=== PATIENT | female | born 1940 | race Caucasian/White ===

== ENCOUNTER → 2016-08-31 17:14 | Outpatient (CLI) | payer MEDICARE, BC ==
[2013-05-01 10:27] VITALS: BMI 33.9
[~2016-08-31 17:14] MED LIST: ALEVE220 MG PO; BENADRYL INJ50 MG/ML IV; BENADRYL25 M1 PO; COUMADIN5 MG PO; DILAUDID2 MG PO; DULCOLAX10 MG/SUPP RC; FISH OIL 1,0001 CA1; FISH OIL 1,0001 CA1 PO; FISH OIL 1,2001 CA1 PO; LEVAQUIN250 MG PO; LOVENOX30 MG/0.3 SQ; MIRALAX17 GM PO; NARCAN INJ0.4 MG/ML IV; NORCO 10/325 TA1 TA1 PO; OXYCONTIN10 MG PO; POTASSIUM99 M1 PO; PRENATAL COMPLE1 TAB PO; PRENATE ESSENT1 EACH PO; PRILOSEC20 MG PO; PROTONIX40 MG PO; RESTORIL15 MG PO; SALINE FLUSH10 ML IJ; SENOKOT-S TABLE1 TAB PO; TUMS500 MG PO; ZOFRAN4 MG PO
== END | disposition home or self-care (01) ==
LOC: D.MAMMO 08-02 08:15
DX: Z12.31 Encounter for screening mammogram for malignant neoplasm of breast (principal)

== ENCOUNTER → 2017-03-17 13:08 | Outpatient (CLI) | payer MEDICARE, BC ==
[2013-05-01 10:27] VITALS: BMI 33.9
== END | disposition home or self-care (01) ==
LOC: D.MRI 13:08
DX: M54.2 Cervicalgia (principal); M25.511 Pain in right shoulder

== ENCOUNTER → 2017-03-30 09:04 | Outpatient (CLI) | payer MEDICARE, BC ==
[2013-05-01 10:27] VITALS: BMI 33.9
== END | disposition home or self-care (01) ==
LOC: D.CT 03-24 11:00
DX: M25.511 Pain in right shoulder (principal)

== ENCOUNTER → 2018-11-09 09:36 | Outpatient (CLI) | payer MEDICARE, BC ==
[~2018-11-09 09:36] MED LIST changes: +PRAVACHOL40 MG PO; +VITAMIN D31000 UNIT PO; +ZYLOPRIM100 MG PO
== END | disposition home or self-care (01) ==
LOC: D.US 09:36
DX: C64.9 Malignant neoplasm of unspecified kidney, except renal pelvis (principal)

== ENCOUNTER 2019-03-07 11:39 | Inpatient (IN) | payer MEDICARE, BC ==
[~2019-03-07] VITALS: Ht 167.6 cm; Wt 93.6 kg
[~2019-03-07 11:39] MED LIST changes: -PRAVACHOL40 MG PO; -VITAMIN D31000 UNIT PO; -ZYLOPRIM100 MG PO
[2019-03-07] MEDS ORDERED: VITAMIN D31000 UNIT PO (13:58)
[2019-03-07] MEDS ORDERED: ZYLOPRIM100 MG PO (13:59)
[2019-03-07] MEDS ORDERED: PRAVACHOL40 MG PO (14:00)
[2019-03-07 14:56] VITALS: BP 153/63; BMI 33.3
[2019-03-07 15:36] VITALS: BP 153/62
[2019-03-07 15:38] VITALS: Ht 167.6 cm; Wt 93.6 kg
[2019-03-07 15:42] LABS: CKMB 2.3 U/L (0.0-3.6); CREATINE KINASE 240 UL (21-215); UREA NITROGEN 20 mg/dL (7-18)
[2019-03-07 15:44] LABS: TROPONIN-I < 0.017 ng/mL (0.000-0.060)
--- NOTE | 2019-03-07 16:26 | NUR ---
IV STARTED TO RIGHT FA WITH 20 GAUGE CATH 2 1 STICK AND FLUSHED WITH NS. LINE IS PATENT.
[2019-03-07 18:59] LABS: APPEARANCE CLEAR (CLEAR); BILIRUBIN NEGATIVE (NEGATIVE); COLOR YELLOW (YELLOW); GLUCOSE NEGATIVE (NEGATIVE); KETONE NEGATIVE (NEGATIVE); NITRITE NEGATIVE (NEGATIVE); PROTEIN NEGATIVE (NEGATIVE); SPECIFIC GRAVITY 1.015 (1.005-1.020); UROBILINOGEN NORMAL (NORMAL)
[2019-03-07 19:02] LABS: BACTERIA FEW /hpf (NONE SEEN); EPITHELIAL CELLS 0-5 /hpf (0-5); RED CELLS - URINE 0-5 /hpf (0-5); WHITE CELLS - URINE OCC /hpf (0-5)
--- NOTE | 2019-03-07 19:59 | NUR ---
RECEIVED BEDSIDE REPORT. PATIENT IS ALERT AND ORIENTED. RESTING COMFORTABLY IN BED. RESPIRATIONS ARE EVEN AND UNLABORED. PATIENT RECEIVING SCHEDULED BREATHING TREATMENT. CALL LIGHT WITHIN REACH. WILL CPOC.
[2019-03-07 20:00] VITALS: BP 132/49
[2019-03-07 20:55] LABS: CKMB 1.8 U/L (0.0-3.6); CREATINE KINASE 219 UL (21-215); TROPONIN-I < 0.017 ng/mL (0.000-0.060)
[2019-03-08] VITALS: BP 134/56
[2019-03-08 03:08] LABS: BASOPHILS 0.9 % (0-2); IMMATURE GRANULOCYTES 0.1 % (0-5); LYMPHOCYTES 42.8 % (15-50); MCH 31.2 pg (26.0-34.0); MCHC 34.3 g/dL (31.0-37.0); MCV 90.9 fL (80.0-100.0); MEAN PLATELET VOLUME 10.5 fL (7.4-10.4); MONOCYTES 14.8 % (2-11); NEUTROPHILS 39.4 % (40-80); RBC 3.85 10x6/uL (4.00-5.40); WBC 8.1 10x3/uL (4.8-10.8)
[2019-03-08 03:12] LABS: PLATELET COUNT 128 10x3/uL (130-400)
[2019-03-08 03:35] LABS: ALBUMIN 3.5 g/dL (3.4-5.0); ALKALINE PHOSPHATASE 59 U/L (46-116); ALT (SGPT) 25 U/L (10-68); BILIRUBIN - TOTAL 0.38 mg/dL (0.2-1.3); CALC OSMOLALITY 282 mosm/kg (275-300); CALCIUM 9.1 mg/dL (8.5-10.1); CARBON DIOXIDE 26.9 mmol/L (21.0-32.0); CHLORIDE - SERUM 105 mmol/L (98-107); CKMB 1.8 U/L (0.0-3.6); CREATINE KINASE 188 UL (21-215); GLUCOSE 117 mg/dL (74-106); MAGNESIUM - SERUM 1.7 mg/dL (1.8-2.4); POTASSIUM - SERUM 3.6 mmol/L (3.5-5.1); PROTEIN - SERUM 6.9 g/dL (6.4-8.2); SODIUM 141 mmol/L (136-145); UREA NITROGEN 16 mg/dL (7-18); eGFR NON AFRICAN AMERICAN 57 mL/min (90-120)
[2019-03-08 03:41] LABS: TROPONIN-I < 0.017 ng/mL (0.000-0.060)
[2019-03-08 04:00] VITALS: BP 130/52
--- NOTE | 2019-03-08 07:20 | NUR ---
REPORT RECEIVED. WILL CONTINUE WITH POC. PT CURRENTLY LYING SEMI FOWLERS. CALL LIGHT W/I REACH. PT IS RESTING AT THE MOMENT. RR EVEN AND UNLABORED ON RA. R.FOR PIV IS SALINE LOCKED. PT IS NPO UNTIL SEEN BY CARDIOLOGY. PT DENIES ANY NEEDS AT THIS TIME. NO S/S OF DISTRESS NOTED. WILL CTM.
--- NOTE | 2019-03-08 07:52 | NUR ---
PT HAS MEDICATION AT BEDSIDE AND REFUSES TO TAKE ORDERED MEDICATIONS WHILE IN THE HOSPITAL. SHE STATED "IM GOING TO TAKE WHAT I NORMALLY DO AT THE SAME TIME I NORMALLY TAKE THEM." INSTRUCTED PATIENT WE WERE NOT ALLOWED TO KEEP HOME MEDICATIONS IN THE ROOM AND SHE REFUSED TO LET ME REMOVE THEM. WILL NOTIFY CHARGE NURSE. WILL CTM.
--- NOTE | 2019-03-08 09:25 | NUR ---
I have reviewed this patient and I concur with the Shift Assessment completed by the Licensed Practical Nurse today this shift.
[2019-03-08 11:00] VITALS: BP 142/53
--- NOTE | 2019-03-08 12:31 | NUR ---
PT CURRENTLY LYING SEMI FOWLERS. CALL LIGHT W/I REACH. AAO AND UP AD MAX. RR EVEN AND UNLABORED ON RA. LUNCH TRAY ORDERED. WILL CTM.
[2019-03-08 16:23] VITALS: BP 155/61
[2019-03-08 20:00] VITALS: BP 133/58
--- NOTE | 2019-03-08 20:00 | NUR ---
INITIAL ROUNDS AND ASSESSMENT COMPLETED. PT UP AND ABOUT IN HER ROOM. NONLABORED RESPIRATIONS ON ROOM AIR. SR PER TELEMETRY. SALINE LOCK TO RFA. CPOC.
--- NOTE | 2019-03-08 23:00 | NUR ---
PT HAS SHOWERED AND DRESSED. WALKING AROUND UNIT. CPOC.
[2019-03-09] VITALS: BP 143/66
[2019-03-09 04:00] VITALS: BP 152/59
[2019-03-09 06:21] LABS: EOSINOPHILS 2.3 % (0-7); HEMATOCRIT 36.7 % (36.0-48.0); HEMOGLOBIN 12.5 g/dL (12-16); IMMATURE GRANULOCYTES 0.1 % (0-5); LYMPHOCYTES 40.4 % (15-50); MCH 31.3 pg (26.0-34.0); MCHC 34.1 g/dL (31.0-37.0); MEAN PLATELET VOLUME 10.7 fL (7.4-10.4); MONOCYTES 9.9 % (2-11); NEUTROPHILS 46.3 % (40-80); PLATELET COUNT 153 10x3/uL (130-400); RBC 3.99 10x6/uL (4.00-5.40); RDW 14.2 % (11.5-14.5); WBC 7.3 10x3/uL (4.8-10.8)
[2019-03-09 06:53] LABS: ALBUMIN 3.8 g/dL (3.4-5.0); ANION GAP 12.8 mmol/L (8-16); BILIRUBIN - TOTAL 0.42 mg/dL (0.2-1.3); CARBON DIOXIDE 27.8 mmol/L (21.0-32.0); CREATININE - SERUM 0.9 mg/dL (0.6-1.3); MAGNESIUM - SERUM 1.8 mg/dL (1.8-2.4); POTASSIUM - SERUM 3.6 mmol/L (3.5-5.1); PROTEIN - SERUM 7.7 g/dL (6.4-8.2)
--- NOTE | 2019-03-09 07:31 | NUR ---
ASSESSMENT COMPLETED. ALERT AND ORIENTED. TELEMERTY SHOWS SR. SL TO RIGHT FOREARM. UP AB MAX. TAKES OWN MEDS. DENIES ANY NEEDS. SR UP WITH CALL LIGHT IN REACH
[2019-03-09 13:08] VITALS: BP 165/72
--- NOTE | 2019-03-09 13:59 | NUR ---
PT DISCHARGED. IV DCD WITH TIPP INTACT. TO PRIVATE CAR PER WHEELCHAIR
--- NOTE | 2019-03-11 09:02 | MORECARE ---
CASE MANAGEMENT DISCHARGE SUMMARY PATIENT: BRANDIE COLÓN UNIT: [id number] ADM DATE: 03/07/19 AGE: 78 : 40 SEX: F ROOM/BED: D.7042 AUTHOR: DALI CHAVEZ PHYSICIAN: REFERRING PHYSICIAN: ELANA RODRÍGUEZ DO DATE OF SERVICE: 03/11/19 Discharge Plan Patient Name: BRANDIE COLÓN [facility] 1940 Planned Disposition: Home Anticipated Discharge Date: 03/09/19 Discharge Date: 03/09/2019 Expected LOS: 2 Initial Reviewer: [email or web address] Initial Review Date: 03/11/2019 Generated: 03/11/19 10:02 am Patient Name: BRANDIE COLÓN Page [id number] at 0902 All edits/amendments must be made on the electronic document DICTATION DATE: 03/11/19901 COAT ROOM ATTENDANT: VINCE 03/11/19901 RPT#: [id number] DC DATE:03/09/19 STATUS: DIS IN [facility] [address] [facility] [place] [address] END OF REPORT
--- NOTE | 2019-03-12 11:09 | EC ---
PATIENT:BRANDIE COLÓN DATE OF SERVICE: 03/07/19 SEX: F MEDICAL RECORD: [id number] DATE OF : 40 LOCATION:D. D.212 AGE OF PATIENT: 78 ADMISSION DATE: 03/07/19 REFERRING PHYSICIAN: INTERPRETING PHYSICIAN: KVNG FERNANDEZ MD ECHOCARDIOGRAM REPORT ECHO CHARGES 4 ECHO COMPLETE Date: 03/08/19 CLINICAL DIAGNOSIS: CHEST PAIN ECHOCARDIOGRAPHIC MEASUREMENTS (adult normal given) AC root (d.<3.7cm) 3.1 cm LV Septum d (<1.2 cm> 1.5 cm Valve Excursion 1.5 cm LV Septum (systole) 1.6 cm Left Atria (s.<4.0cm> 3.7 cm LVPW d(<1.2cm) 1.5 cm RV (d.<2.3cm) 3.6 cm LVPW (sytole) 1.6 cm LV diastole(<5.6CM) 3.5 cm MV E-F(>70mm/sec) cm LV systole 2.4 cm LVOT Diameter 1.9 cm MV exc.(>10mm) 1.6 cm Est.ejection fraction (50-75%) % DOPPLER: LVIT cm/sec A 100.0cm/sec E 70.0 cm/sec LA cm/sec RVSP 32 mmHg LVOT 123 cm/sec AOP1/2T m/s Asc. Ao 170 cm/sec RVOT 133 cm/sec RA cm/sec PA 140 cm/sec AV Gradient Peak 11.53mmHg AV Mean 6.26 mmHg AV Area 1.9 cm MV Gradient Peak 6.45 mmHg MV Mean 2.42 mmHg MV Area cm COMMENTS: Forestry Foreman: Nelly LEIJA Divorce Attorney: 1 Dr. Fernandez TAPE# PACS Pericardial Effusion N DATE OF SERVICE: 03/08/2019 FINDINGS: 1. Left ventricular chamber size is within normal limits. Left ventricular systolic function is normal. Overall ejection fraction is estimated at 60%. 2. Left atrium, right atrium, and right ventricular chamber sizes are within normal limit. 3. Valvular structures have normal structure and motion. 4. Doppler interrogation reveals mild tricuspid regurgitation. No other valvular insufficiency or stenosis. Pulmonary systolic pressure is normal, ECHOCARDIOGRAM REPORT [id number] BRANDIE COLÓN estimated at 32 mmHg. 5. No evidence of pericardial effusion or left ventricular thrombus. TRANSINT:[id number] Voice Confirmation ID: [id number] DOCUMENT ID: [id number] KVNG FERNANDEZ MD at 1109 CC: [id number] DICTATION DATE: 03/08/19 162 QUALITY ASSURANCE CALIBRATOR: 03/08/19 1739 DIS IN 03/09/19 [facility] [address] [id number]
== END 2019-03-09 14:01 | disposition home or self-care (01) | DRG 192 ==
LOC: D.M2 11:39
PROVIDERS: Family Medicine; ADMIT Family Medicine; ATTEND Family Medicine
DX: J44.9 Chronic obstructive pulmonary disease, unspecified (principal); R91.1 Solitary pulmonary nodule; E66.9 Obesity, unspecified; Z68.33 Body mass index [BMI] 33.0-33.9, adult; G47.30 Sleep apnea, unspecified; I10 Essential (primary) hypertension; E78.5 Hyperlipidemia, unspecified